=== PATIENT | male | born 1970 | race African-American/Black ===

== ENCOUNTER 2019-07-31 10:23 | Inpatient (IN) ==
[2019-07-31] MEDS ORDERED: SODIUM CHLORIDE 0.9% 1,000 ML IV STA (10:54)
[2019-07-31 11:07] LABS: Basophils # 0.1 10*3/uL (0.0-0.2); Basophils % 0.5 % (0.0-0.8); Hematocrit 41.6 VOL% (42.0-52.0); Hemoglobin 13.9 GM/DL (14.0-18.0); Immature Granulocytes % 4.6 %; Immature Granulocytes Absolute 1.15 #; Lymphocytes # 0.4 10*3/uL (1.4-4.0); Lymphocytes % 1.6 % (21.2-54.2); Mean Corpuscular HGB Conc 33.4 GM/DL (32-36); Mean Corpuscular Volume 98.8 FL (87-102); Mean Platelet Volume 11.3 FL (9.6-12.0); Monocytes % 9.1 % (1.7-12.7); NRBC # 0.02 10*3/uL; Neutrophils % 84.2 % (38.7-73.9); Platelet Count 122 T/CUMM (130-400); Red Blood Count 4.21 MC/CUMM (3.8-5.5); Red Cell Distribution Width 12.9 % (9.3-17.3); White Blood Count 24.9 T/CUMM (4-12)
[2019-07-31 11:24] LABS: Alanine Aminotransferase 98 U/L (16-61); Albumin 2.9 G/DL (3.4-5.0); Alkaline Phosphatase 91 U/L (45-117); Aspartate Amino Transferase 617 U/L (0-37); Blood Urea Nitrogen 10 MG/DL (7-18); Calcium 8.8 MG/DL (8.5-10.1); Estimated Glom Filtration Rate 39 ML/MIN; Osmolality,Calculated 259.5 MOS/KG (273-304); Total Protein 7.9 G/DL (6.4-8.3)
[2019-07-31 11:25] LABS: Glucose 48 MG/DL (74-106)
[2019-07-31] MEDS ORDERED: DEXTROSE 50% 25 GM/50 ML SYRINGE IV ONE (11:26)
[2019-07-31 11:29] LABS: Band Neutrophils 18 % (0-10); Eosinophils 1 % (0-10); Lymphocytes 2 % (20-55); Segmented Neutrophils 71 % (50-85); Total Cells Counted 100
[2019-07-31 11:30] LABS: Hypochromasia 1+; Platelet Estimate Adequate
[2019-07-31] MEDS ORDERED: DEXTROSE 50% 25 GM/50 ML VIAL IV STA (11:32)
[2019-07-31] MEDS ORDERED: SODIUM CHLORIDE 0.9% 2,700 ML IV ONE (11:34)
[2019-07-31] MEDS ORDERED: VANCOMYCIN INJ 1,250 MG in SODIUM CHLORIDE 0.9% 250 ML IV ONE (12:00)
[2019-07-31] MEDS ORDERED: PIPERACILLIN/TAZOBACTAM 3,375 MG in SODIUM CHLORIDE 0.9% 100 ML IV ONE (12:00)
[2019-07-31 12:43] LABS: Amorphous Crystals,Urine Few /HPF (Few); Apearance,Urine CLOUDY (Clear); Bacteria,Urine Occasional /HPF (Few); Bilirubin,Urine Negative (Negative); Blood, Urine Large mg/dL (Negative); Glucose,Urine (UA) 50 mg/dL (Negative); Hyaline Casts,Urine 9 /LPF (0-3); Ketones,Urine Negative (Negative); Mucus,Urine Occasional /LPF (Occasional); Nitrite,Urine Negative (Negative); Protein,Urine 100 MG/DL; Squamous Epithelial Cell,Urine Occasional /HPF (0-10); Urine Color Amber (Yellow); Urine Specific Gravity 1.015 (1.001-1.035); Urine Urobilinogen < 2.0 EU/DL (0.2-1.0)
[2019-07-31 12:46] LABS: Barbiturates Screen,Urine Negative (Negative); Benzodiazepines Screen,Urine Negative (Negative); Cannabinoid Screen,Urine Negative (Negative); Opiate Screen,Urine Negative (Negative); Phencyclidine Screen,Urine Negative (Negative)
[2019-07-31] MEDS ORDERED: ONDANSETRON 4 MG/2 ML VIAL IV PRN (13:04)
[2019-07-31] MEDS ORDERED: SODIUM CHLORIDE 0.9% 1,000 ML IV SCH (13:04)
[2019-07-31] MEDS ORDERED: NIFEdipine 10 MG CAPSULE PO PRN (13:07)
[2019-07-31] MEDS ORDERED: DEXTROSE 50% 25 GM/50 ML VIAL IV PRN (13:07)
[2019-07-31] MEDS ORDERED: GLUCAGON 1 MG VIAL IM PRN (13:07)
[2019-07-31] MEDS: PANTOPRAZOLE 40 MG TABLET PO SCH (13:34)
[2019-07-31] MEDS: carvediloL 12.5 MG TABLET PO SCH ×2 (13:34→20:30)
[2019-07-31] MEDS: DEXTROSE 5% LACTATED RINGERS 1,000 ML IV SCH ×2 (14:30→21:17)
[2019-07-31] MEDS: INSULIN LISPRO 100 UNIT/ML SUBCUT SCH ×2 (15:07→20:58)
[2019-07-31] MEDS: LEVOFLOXACIN INJ 750 MG in PREMIX 1 EACH IV SCH (15:15)
[2019-07-31] MEDS: POTASSIUM CHLORIDE 20 MEQ TABLET PO SCH ×2 (16:18→20:30)
[2019-07-31 18:37] LABS: Urine Color Amber (Yellow)
[2019-07-31 18:38] LABS: Apearance,Urine Cloudy (Clear); Glucose,Urine (UA) 150 mg/dL (Negative); Ketones,Urine Negative (Negative); Protein,Urine >=500 MG/DL
[2019-07-31 18:39] LABS: Bilirubin,Urine Negative (Negative); Nitrite,Urine Negative (Negative)
[2019-07-31 18:40] LABS: Blood, Urine 1+ mg/dL (Negative)
[2019-07-31 18:41] LABS: Urine Urobilinogen 0.2 EU/DL (0.2-1.0)
[2019-07-31 18:42] LABS: RBC,Urine TNTC /HPF (0-4); Squamous Epithelial Cell,Urine 1+ /HPF (0-10); WBC,Urine Occasional /HPF (0-6)
[2019-07-31 18:43] LABS: Transitional Epi Cells,Urine None Seen /HPF (<1)
[2019-07-31] MEDS: ENOXAPARIN 40 MG/0.4 ML SYRINGE SUBCUT SCH (20:30)
[2019-08-01] MEDS: POTASSIUM CHLORIDE 20 MEQ TABLET PO SCH (00:09)
[2019-08-01] MEDS: INSULIN LISPRO 100 UNIT/ML SUBCUT SCH ×6 (00:09→20:13)
[2019-08-01] MEDS ORDERED: LACTATED RINGERS 1,000 ML IV ONE (00:53)
[2019-08-01 02:10] LABS: Albumin 1.8 G/DL (3.4-5.0); Bilirubin,Total 0.5 MG/DL (0.2-1.0); Calcium 7.3 MG/DL (8.5-10.1); Osmolality,Calculated 271.4 MOS/KG (273-304); Total Protein 5.9 G/DL (6.4-8.3)
[2019-08-01 04:17] LABS: Basophils % 0.2 % (0.0-0.8); Hematocrit 32.6 VOL% (42.0-52.0); Immature Granulocytes % 0.8 %; Immature Granulocytes Absolute 0.17 #; Lymphocytes # 0.8 10*3/uL (1.4-4.0); Lymphocytes % 3.7 % (21.2-54.2); Mean Corpuscular HGB Conc 33.7 GM/DL (32-36); Mean Corpuscular Volume 97.9 FL (87-102); Mean Platelet Volume 11.9 FL (9.6-12.0); Monocytes % 8.4 % (1.7-12.7); Neutrophils % 86.9 % (38.7-73.9); Platelet Count 86 T/CUMM (130-400); Red Blood Count 3.33 MC/CUMM (3.8-5.5); White Blood Count 20.8 T/CUMM (4-12)
[2019-08-01 04:41] LABS: Band Neutrophils 7 % (0-10); Hypochromasia 1+; Lymphocytes 4 % (20-55); Platelet Estimate Decreased; Segmented Neutrophils 85 % (50-85); Total Cells Counted 100
[2019-08-01] MEDS: DEXTROSE 5% LACTATED RINGERS 1,000 ML IV SCH ×3 (05:32→19:30)
[2019-08-01 06:42] LABS: Risk Ratio 3.29; Thyroid Stimulating Hormone 0.883 uIU/ml (0.358-3.74); VLDL CHOLESTEROL 18.8 MG/DL
[2019-08-01 07:06] LABS: Albumin 1.8 G/DL (3.4-5.0); Bilirubin,Total 0.6 MG/DL (0.2-1.0); Calcium 7.4 MG/DL (8.5-10.1); Osmolality,Calculated 269.5 MOS/KG (273-304); Total Protein 5.8 G/DL (6.4-8.3)
[2019-08-01 07:07] LABS: Troponin I 0.793 NG/ML (0.00-0.045)
[2019-08-01] MEDS: carvediloL 12.5 MG TABLET PO SCH ×2 (08:17→20:19)
[2019-08-01] MEDS: PANTOPRAZOLE 40 MG TABLET PO SCH (08:18)
[2019-08-01] MEDS: ENOXAPARIN 40 MG/0.4 ML SYRINGE SUBCUT SCH (20:19)
[2019-08-02] MEDS: INSULIN LISPRO 100 UNIT/ML SUBCUT SCH ×6 (01:00→20:18)
[2019-08-02] MEDS: DEXTROSE 5% LACTATED RINGERS 1,000 ML IV SCH ×3 (01:31→19:38)
[2019-08-02 04:12] LABS: Basophils % 0.2 % (0.0-0.8); Eosinophils % 0.1 % (0.00-10.9); Hemoglobin 10.9 GM/DL (14.0-18.0); Immature Granulocytes % 1.1 %; Immature Granulocytes Absolute 0.22 #; Lymphocytes # 0.9 10*3/uL (1.4-4.0); Lymphocytes % 4.4 % (21.2-54.2); Mean Corpuscular Volume 98.8 FL (87-102); Mean Platelet Volume 12.1 FL (9.6-12.0); NRBC # 0.02 10*3/uL; Neutrophils % 84.2 % (38.7-73.9); Platelet Count 98 T/CUMM (130-400); Red Blood Count 3.34 MC/CUMM (3.8-5.5); Red Cell Distribution Width 13.3 % (9.3-17.3); White Blood Count 19.4 T/CUMM (4-12)
[2019-08-02 04:35] LABS: Calcium 8.1 MG/DL (8.5-10.1); Osmolality,Calculated 271.8 MOS/KG (273-304)
[2019-08-02 04:53] LABS: Band Neutrophils 3 % (0-10); Hypochromasia 1+; Lymphocytes 5 % (20-55); Platelet Estimate Decreased; Segmented Neutrophils 82 % (50-85); Total Cells Counted 100
[2019-08-02] MEDS: PANTOPRAZOLE 40 MG TABLET PO SCH (09:24)
[2019-08-02] MEDS: carvediloL 12.5 MG TABLET PO SCH (09:24)
[2019-08-02] MEDS: LEVOFLOXACIN INJ 750 MG in PREMIX 1 EACH IV SCH (16:54)
[2019-08-02] MEDS: ENOXAPARIN 30 MG/0.3 ML SYRINGE SUBCUT SCH (20:20)
[2019-08-03] MEDS: INSULIN LISPRO 100 UNIT/ML SUBCUT SCH ×6 (00:18→21:48)
[2019-08-03 04:54] LABS: Basophils % 0.2 % (0.0-0.8); Eosinophils % 0.1 % (0.00-10.9); Hemoglobin 11.4 GM/DL (14.0-18.0); Immature Granulocytes % 4.3 %; Immature Granulocytes Absolute 0.84 #; Lymphocytes # 1.4 10*3/uL (1.4-4.0); Mean Corpuscular HGB Conc 34.5 GM/DL (32-36); Mean Corpuscular Volume 95.7 FL (87-102); Mean Platelet Volume 12.4 FL (9.6-12.0); Monocytes % 11.5 % (1.7-12.7); NRBC # 0.02 10*3/uL; Neutrophils % 76.9 % (38.7-73.9); Platelet Count 122 T/CUMM (130-400); Red Blood Count 3.45 MC/CUMM (3.8-5.5); Red Cell Distribution Width 13.2 % (9.3-17.3); White Blood Count 19.4 T/CUMM (4-12)
[2019-08-03 05:16] LABS: Calcium 8.4 MG/DL (8.5-10.1); Osmolality,Calculated 268.2 MOS/KG (273-304)
[2019-08-03 05:17] LABS: Band Neutrophils 2 % (0-10); Eosinophils 1 % (0-10); Hypochromasia 1+; Lymphocytes 5 % (20-55); Nucleated Red Blood Cells 1 (0-5); Segmented Neutrophils 84 % (50-85); Total Cells Counted 100
[2019-08-03] MEDS: DEXTROSE 5% LACTATED RINGERS 1,000 ML IV SCH ×2 (07:58→11:03)
[2019-08-03] MEDS: PANTOPRAZOLE 40 MG TABLET PO SCH (09:12)
[2019-08-03] MEDS ORDERED: ceFAZolin 1,000 MG in SYRINGE 1 EACH IV ONE (10:56)
[2019-08-03] MEDS ORDERED: ceFAZolin 1,000 MG in SYRINGE 1 EACH IV SCH (11:00)
[2019-08-03] MEDS: hydrALAZINE 20 MG/1 ML VIAL IV PRN (12:05)
[2019-08-03] MEDS ORDERED: cefTRIAXone 2,000 MG in SYRINGE 1 EACH IV SCH (21:00)
[2019-08-03] MEDS: ENOXAPARIN 30 MG/0.3 ML SYRINGE SUBCUT SCH (22:00)
[2019-08-04] MEDS: INSULIN LISPRO 100 UNIT/ML SUBCUT SCH ×6 (02:13→23:32)
[2019-08-04] MEDS ORDERED: LORazepam 2 MG/1 ML VIAL IV ONE (03:43)
[2019-08-04 05:55] LABS: Hematocrit 36.5 VOL% (42.0-52.0); Hemoglobin 12.7 GM/DL (14.0-18.0); Mean Corpuscular HGB Conc 34.8 GM/DL (32-36); Mean Corpuscular Volume 95.3 FL (87-102); Platelet Count 195 T/CUMM (130-400); Red Blood Count 3.83 MC/CUMM (3.8-5.5); Red Cell Distribution Width 13.2 % (9.3-17.3); White Blood Count 18.1 T/CUMM (4-12)
[2019-08-04 05:56] LABS: Basophils # 0.1 10*3/uL (0.0-0.2); Basophils % 0.4 % (0.0-0.8); Eosinophils % 0.2 % (0.00-10.9); Immature Granulocytes Absolute 0.73 #; Lymphocytes # 1.5 10*3/uL (1.4-4.0); Lymphocytes % 8.5 % (21.2-54.2); Monocytes % 13.5 % (1.7-12.7); Neutrophils % 73.4 % (38.7-73.9)
[2019-08-04] MEDS ORDERED: ceFAZolin 1,000 MG in SYRINGE 1 EACH IV ONE (06:00)
[2019-08-04 06:16] LABS: Hypochromasia Slight; Lymphocytes 7 % (20-55); Platelet Estimate Adequate; Segmented Neutrophils 80 % (50-85); Total Cells Counted 100
[2019-08-04 06:24] LABS: Calcium 8.3 MG/DL (8.5-10.1); Osmolality,Calculated 272.2 MOS/KG (273-304)
[2019-08-04 06:29] LABS: Albumin 1.7 G/DL (3.4-5.0); Bilirubin,Direct 0.14 MG/DL (0.0-0.20); Bilirubin,Indirect 0.5 MG/DL (0.0-1.0); Bilirubin,Total 0.6 MG/DL (0.2-1.0); Osmolality,Calculated 273.2 MOS/KG (273-304); Total Protein 6.5 G/DL (6.4-8.3)
[2019-08-04] MEDS ORDERED: LORazepam 2 MG/1 ML VIAL IV PRN (09:24)
[2019-08-04] MEDS ORDERED: LIDOCAINE 1% 20 ML VIAL ONE (10:03)
[2019-08-04] MEDS ORDERED: HEPARIN 5,000 UNIT/1 ML VIAL ONE (10:03)
[2019-08-04] MEDS ORDERED: BUPIVACAINE 0.25% /EPI 10 ML VIAL ONE (10:03)
[2019-08-04] MEDS ORDERED: SODIUM CHLORIDE 0.9% 250 ML IV SCH (10:30)
[2019-08-04] MEDS ORDERED: ALBUTEROL/IPRATROPIUM 3 ML NEB RESP TX ONE (10:39)
[2019-08-04] MEDS ORDERED: TISSUE ADHESIVE 1 EACH APPLICATOR TOP ONE (11:13)
[2019-08-04] MEDS ORDERED: LIDOCAINE 100 MG/5 ML SYRINGE ONE (11:34)
[2019-08-04] MEDS ORDERED: MIDAZOLAM 2 MG/2 ML VIAL ONE (11:34)
[2019-08-04] MEDS ORDERED: PROPOFOL 200 MG/20 ML VIAL IV ONE (11:34)
[2019-08-04] MEDS ORDERED: SODIUM CHLORIDE 0.9% 250 ML IV ONE (11:35)
[2019-08-04] MEDS ORDERED: KETAMINE 500 MG/10 ML VIAL ONE (11:35)
[2019-08-04] MEDS ORDERED: ceFAZolin 2,000 MG in PREMIX 1 EACH IV PRN (12:00)
[2019-08-04 12:21] LABS: Hepatitis B Surface Ag Quant 0.35 Index; Hepatitis B Surface Ag Result Negative (Negative); Hepatitis C Virus Ab Quant 0.05 Index; Hepatitis C Virus Ab Result Negative (Negative)
[2019-08-04] MEDS ORDERED: HEPARIN 10,000 UNIT/10 ML VIAL IV PRN (12:34)
[2019-08-04] MEDS ORDERED: ceFAZolin 2,000 MG in PREMIX 1 EACH IV ONE (17:00)
[2019-08-04] MEDS: PANTOPRAZOLE 40 MG TABLET PO SCH (17:16)
[2019-08-04] MEDS: ENOXAPARIN 30 MG/0.3 ML SYRINGE SUBCUT SCH (20:30)
[2019-08-05] MEDS: hydrALAZINE 20 MG/1 ML VIAL IV PRN ×3 (00:18→18:00)
[2019-08-05] MEDS: INSULIN LISPRO 100 UNIT/ML SUBCUT SCH (01:36)
[2019-08-05 05:45] LABS: Calcium 7.9 MG/DL (8.5-10.1); Osmolality,Calculated 274.8 MOS/KG (273-304)
[2019-08-05] MEDS ORDERED: INSULIN LISPRO 100 UNIT/ML SUBCUT SCH (07:30)
[2019-08-05] MEDS: PANTOPRAZOLE 40 MG TABLET PO SCH (10:43)
[2019-08-05] MEDS ORDERED: ceFAZolin 2,000 MG in PREMIX 1 EACH IV ONE (17:00)
[2019-08-05] MEDS: ENOXAPARIN 30 MG/0.3 ML SYRINGE SUBCUT SCH (20:36)
[2019-08-06 07:24] LABS: Basophils # 0.1 10*3/uL (0.0-0.2); Basophils % 0.7 % (0.0-0.8); Eosinophils # 0.1 10*3/uL (0.0-0.87); Hematocrit 32.1 VOL% (42.0-52.0); Hemoglobin 10.9 GM/DL (14.0-18.0); Immature Granulocytes % 8.7 %; Immature Granulocytes Absolute 1.04 #; Lymphocytes # 1.6 10*3/uL (1.4-4.0); Lymphocytes % 13.4 % (21.2-54.2); Mean Corpuscular Volume 96.1 FL (87-102); Mean Platelet Volume 10.4 FL (9.6-12.0); Monocytes % 23.2 % (1.7-12.7); Platelet Count 228 T/CUMM (130-400); Red Blood Count 3.34 MC/CUMM (3.8-5.5); Red Cell Distribution Width 14.1 % (9.3-17.3); White Blood Count 11.9 T/CUMM (4-12)
[2019-08-06 07:41] LABS: Calcium 7.9 MG/DL (8.5-10.1); Osmolality,Calculated 277.4 MOS/KG (273-304)
[2019-08-06 07:57] LABS: Anisocytosis 1+; Band Neutrophils 10 % (0-10); Eosinophils 1 % (0-10); Lymphocytes 19 % (20-55); Macrocytosis 2+; Platelet Estimate Normal; Segmented Neutrophils 50 % (50-85); Total Cells Counted 100
[2019-08-06] MEDS: PANTOPRAZOLE 40 MG TABLET PO SCH (13:37)
[2019-08-06] MEDS: amLODIPine 5 MG TABLET PO SCH (13:37)
[2019-08-06] MEDS: hydrALAZINE 20 MG/1 ML VIAL IV PRN (13:37)
[2019-08-06] MEDS: ceFAZolin 2,000 MG in PREMIX 1 EACH IV SCH (16:56)
[2019-08-07 04:50] LABS: Basophils # 0.1 10*3/uL (0.0-0.2); Basophils % 0.4 % (0.0-0.8); Eosinophils # 0.2 10*3/uL (0.0-0.87); Eosinophils % 1.3 % (0.00-10.9); Hematocrit 30.3 VOL% (42.0-52.0); Hemoglobin 10.5 GM/DL (14.0-18.0); Immature Granulocytes % 8.4 %; Immature Granulocytes Absolute 0.95 #; Lymphocytes # 1.4 10*3/uL (1.4-4.0); Lymphocytes % 12.1 % (21.2-54.2); Mean Corpuscular HGB Conc 34.7 GM/DL (32-36); Mean Corpuscular Volume 96.2 FL (87-102); Mean Platelet Volume 10.7 FL (9.6-12.0); Neutrophils % 53.8 % (38.7-73.9); Platelet Count 230 T/CUMM (130-400); Red Blood Count 3.15 MC/CUMM (3.8-5.5); White Blood Count 11.4 T/CUMM (4-12)
[2019-08-07 05:00] LABS: Osmolality,Calculated 274.1 MOS/KG (273-304)
[2019-08-07 05:36] LABS: Band Neutrophils 1 % (0-10); Eosinophils 3 % (0-10); Lymphocytes 11 % (20-55); Metamyelocytes 1 %; Myelocytes 1 %; Segmented Neutrophils 65 % (50-85); Total Cells Counted 100
[2019-08-07 05:37] LABS: Hypochromasia 1+; Platelet Estimate Normal
[2019-08-07] MEDS: PANTOPRAZOLE 40 MG TABLET PO SCH (09:26)
[2019-08-07] MEDS: amLODIPine 5 MG TABLET PO SCH (09:26)
[2019-08-08 04:53] LABS: Basophils # 0.1 10*3/uL (0.0-0.2); Basophils % 0.7 % (0.0-0.8); Eosinophils # 0.2 10*3/uL (0.0-0.87); Eosinophils % 1.9 % (0.00-10.9); Hematocrit 30.2 VOL% (42.0-52.0); Hemoglobin 10.4 GM/DL (14.0-18.0); Immature Granulocytes % 8.1 %; Immature Granulocytes Absolute 0.83 #; Lymphocytes # 1.4 10*3/uL (1.4-4.0); Lymphocytes % 13.9 % (21.2-54.2); Mean Corpuscular HGB Conc 34.4 GM/DL (32-36); Mean Corpuscular Volume 95.6 FL (87-102); Mean Platelet Volume 10.3 FL (9.6-12.0); Monocytes % 20.8 % (1.7-12.7); Neutrophils % 54.6 % (38.7-73.9); Platelet Count 244 T/CUMM (130-400); Red Blood Count 3.16 MC/CUMM (3.8-5.5); Red Cell Distribution Width 13.4 % (9.3-17.3); White Blood Count 10.3 T/CUMM (4-12)
[2019-08-08 05:18] LABS: Calcium 7.8 MG/DL (8.5-10.1); Osmolality,Calculated 268.8 MOS/KG (273-304)
[2019-08-08 05:45] LABS: Band Neutrophils 6 % (0-10); Eosinophils 2 % (0-10); Lymphocytes 12 % (20-55); Segmented Neutrophils 68 % (50-85); Total Cells Counted 100
[2019-08-08 05:46] LABS: Anisocytosis 1+; Platelet Estimate Normal; Target Cells Few
[2019-08-08] MEDS: PANTOPRAZOLE 40 MG TABLET PO SCH (09:32)
[2019-08-08] MEDS: amLODIPine 5 MG TABLET PO SCH (09:32)
[2019-08-09] MEDS: hydrALAZINE 20 MG/1 ML VIAL IV PRN ×2 (01:53→22:11)
[2019-08-09 05:43] LABS: Basophils # 0.1 10*3/uL (0.0-0.2); Basophils % 0.5 % (0.0-0.8); Eosinophils # 0.2 10*3/uL (0.0-0.87); Eosinophils % 1.6 % (0.00-10.9); Hematocrit 30.8 VOL% (42.0-52.0); Hemoglobin 10.6 GM/DL (14.0-18.0); Immature Granulocytes % 5.3 %; Immature Granulocytes Absolute 0.55 #; Lymphocytes # 1.5 10*3/uL (1.4-4.0); Lymphocytes % 14.3 % (21.2-54.2); Mean Corpuscular HGB Conc 34.4 GM/DL (32-36); Mean Platelet Volume 10.5 FL (9.6-12.0); Monocytes % 18.6 % (1.7-12.7); Neutrophils % 59.7 % (38.7-73.9); Platelet Count 181 T/CUMM (130-400); Red Blood Count 3.21 MC/CUMM (3.8-5.5); Red Cell Distribution Width 13.4 % (9.3-17.3); White Blood Count 10.4 T/CUMM (4-12)
[2019-08-09 06:09] LABS: Calcium 8.1 MG/DL (8.5-10.1); Osmolality,Calculated 271.5 MOS/KG (273-304)
[2019-08-09 06:13] LABS: Band Neutrophils 6 % (0-10); Eosinophils 2 % (0-10); Lymphocytes 8 % (20-55); Myelocytes 1 %; Segmented Neutrophils 65 % (50-85)
[2019-08-09 06:14] LABS: Platelet Estimate Normal; Total Cells Counted 100
[2019-08-09] MEDS: PANTOPRAZOLE 40 MG TABLET PO SCH (10:01)
[2019-08-09] MEDS: amLODIPine 5 MG TABLET PO SCH (10:01)
[2019-08-10] MEDS: ACETAMINOPHEN 325 MG TABLET PO PRN (01:22)
[2019-08-10] MEDS: hydrALAZINE 20 MG/1 ML VIAL IV PRN ×2 (06:02→12:45)
[2019-08-10] MEDS: PANTOPRAZOLE 40 MG TABLET PO SCH (10:28)
[2019-08-10] MEDS: amLODIPine 5 MG TABLET PO SCH (10:28)
[2019-08-10 11:01] LABS: Alanine Aminotransferase < 6 U/L (16-61); Albumin 1.7 G/DL (3.4-5.0); Alkaline Phosphatase 62 U/L (45-117); Aspartate Amino Transferase 54 U/L (0-37); Bilirubin,Total < 0.39 MG/DL (0.2-1.0); Blood Urea Nitrogen 48 MG/DL (7-18); Calcium 8.1 MG/DL (8.5-10.1); Estimated Glom Filtration Rate 7 ML/MIN; Glucose 61 MG/DL (74-106); Osmolality,Calculated 270.8 MOS/KG (273-304); Total Protein 6.8 G/DL (6.4-8.3)
[2019-08-10] MEDS ORDERED: amLODIPine 5 MG TABLET PO ONE (21:00)
[2019-08-11] MEDS: ACETAMINOPHEN 325 MG TABLET PO PRN (00:04)
[2019-08-11] MEDS: hydrALAZINE 20 MG/1 ML VIAL IV PRN (04:19)
[2019-08-11 05:02] LABS: Basophils # 0.1 10*3/uL (0.0-0.2); Basophils % 0.8 % (0.0-0.8); Eosinophils # 0.2 10*3/uL (0.0-0.87); Eosinophils % 1.6 % (0.00-10.9); Hematocrit 29.8 VOL% (42.0-52.0); Hemoglobin 10.2 GM/DL (14.0-18.0); Immature Granulocytes % 3.3 %; Immature Granulocytes Absolute 0.37 #; Lymphocytes # 1.8 10*3/uL (1.4-4.0); Lymphocytes % 15.8 % (21.2-54.2); Mean Corpuscular HGB Conc 34.2 GM/DL (32-36); Mean Corpuscular Volume 97.4 FL (87-102); Mean Platelet Volume 10.7 FL (9.6-12.0); Monocytes % 14.8 % (1.7-12.7); Neutrophils % 63.7 % (38.7-73.9); Platelet Count 192 T/CUMM (130-400); Red Blood Count 3.06 MC/CUMM (3.8-5.5); Red Cell Distribution Width 13.2 % (9.3-17.3); White Blood Count 11.1 T/CUMM (4-12)
[2019-08-11 05:37] LABS: Alanine Aminotransferase < 6 U/L (16-61); Albumin 1.6 G/DL (3.4-5.0); Alkaline Phosphatase 59 U/L (45-117); Aspartate Amino Transferase 44 U/L (0-37); Blood Urea Nitrogen 56 MG/DL (7-18); Calcium 8.3 MG/DL (8.5-10.1); Estimated Glom Filtration Rate 6 ML/MIN; Glucose 66 MG/DL (74-106); Osmolality,Calculated 271.9 MOS/KG (273-304); Total Protein 6.5 G/DL (6.4-8.3)
[2019-08-11] MEDS: PANTOPRAZOLE 40 MG TABLET PO SCH (08:37)
[2019-08-11] MEDS: amLODIPine 10 MG TABLET PO SCH (08:37)
[2019-08-11] MEDS: ceFAZolin 2,000 MG in PREMIX 1 EACH IV SCH (16:42)
[2019-08-11 18:42] LABS: Creatinine,Urine Random 112 MG/DL; Total Protein,Urine Random 425 MG/DL
[2019-08-12 05:16] LABS: Basophils # 0.1 10*3/uL (0.0-0.2); Basophils % 0.7 % (0.0-0.8); Eosinophils # 0.2 10*3/uL (0.0-0.87); Eosinophils % 1.7 % (0.00-10.9); Hematocrit 28.6 VOL% (42.0-52.0); Hemoglobin 9.7 GM/DL (14.0-18.0); Immature Granulocytes % 1.7 %; Immature Granulocytes Absolute 0.16 #; Lymphocytes # 1.2 10*3/uL (1.4-4.0); Lymphocytes % 12.6 % (21.2-54.2); Mean Corpuscular HGB Conc 33.9 GM/DL (32-36); Mean Corpuscular Volume 97.3 FL (87-102); Mean Platelet Volume 10.6 FL (9.6-12.0); Monocytes % 18.1 % (1.7-12.7); Neutrophils % 65.2 % (38.7-73.9); Platelet Count 181 T/CUMM (130-400); Red Blood Count 2.94 MC/CUMM (3.8-5.5); Red Cell Distribution Width 13.3 % (9.3-17.3); White Blood Count 9.7 T/CUMM (4-12)
[2019-08-12 05:36] LABS: Alanine Aminotransferase < 6 U/L (16-61); Albumin 1.6 G/DL (3.4-5.0); Alkaline Phosphatase 63 U/L (45-117); Aspartate Amino Transferase 40 U/L (0-37); Blood Urea Nitrogen 27 MG/DL (7-18); Estimated Glom Filtration Rate 11 ML/MIN; Glucose 88 MG/DL (74-106); Osmolality,Calculated 269.4 MOS/KG (273-304); Total Protein 6.7 G/DL (6.4-8.3)
[2019-08-12 05:37] LABS: Calcium 7.9 MG/DL (8.5-10.1); Osmolality,Calculated 269.4 MOS/KG (273-304)
[2019-08-12 05:42] LABS: Eosinophils 2 % (0-10); Hypochromasia 1+; Lymphocytes 11 % (20-55); Segmented Neutrophils 74 % (50-85); Total Cells Counted 100
[2019-08-12 05:43] LABS: Macrocytosis Slight; Target Cells Few
[2019-08-12 05:44] LABS: Platelet Estimate Adequate
[2019-08-12] MEDS: amLODIPine 10 MG TABLET PO SCH (08:56)
[2019-08-12] MEDS: PANTOPRAZOLE 40 MG TABLET PO SCH (08:56)
[2019-08-13 05:24] LABS: Basophils # 0.1 10*3/uL (0.0-0.2); Basophils % 0.9 % (0.0-0.8); Eosinophils # 0.2 10*3/uL (0.0-0.87); Hemoglobin 9.5 GM/DL (14.0-18.0); Immature Granulocytes % 1.3 %; Immature Granulocytes Absolute 0.12 #; Lymphocytes # 1.6 10*3/uL (1.4-4.0); Lymphocytes % 18.1 % (21.2-54.2); Mean Corpuscular HGB Conc 33.9 GM/DL (32-36); Mean Corpuscular Volume 97.6 FL (87-102); Mean Platelet Volume 10.7 FL (9.6-12.0); Monocytes % 17.8 % (1.7-12.7); Neutrophils % 59.9 % (38.7-73.9); Platelet Count 186 T/CUMM (130-400); Red Blood Count 2.87 MC/CUMM (3.8-5.5); Red Cell Distribution Width 13.1 % (9.3-17.3)
[2019-08-13 05:49] LABS: Band Neutrophils 1 % (0-10); Eosinophils 3 % (0-10); Lymphocytes 12 % (20-55); Platelet Estimate Adequate; Segmented Neutrophils 70 % (50-85); Total Cells Counted 100
[2019-08-13 05:50] LABS: Hypochromasia 1+; Macrocytosis Slight
[2019-08-13 05:56] LABS: Alanine Aminotransferase < 6 U/L (16-61); Albumin 1.6 G/DL (3.4-5.0); Alkaline Phosphatase 64 U/L (45-117); Aspartate Amino Transferase 35 U/L (0-37); Bilirubin,Total < 0.39 MG/DL (0.2-1.0); Blood Urea Nitrogen 34 MG/DL (7-18); Calcium 8.1 MG/DL (8.5-10.1); Estimated Glom Filtration Rate 8 ML/MIN; Glucose 86 MG/DL (74-106); Osmolality,Calculated 270.5 MOS/KG (273-304); Total Protein 6.8 G/DL (6.4-8.3)
[2019-08-13 06:16] LABS: Total Protein 6.8 G/DL (6.4-8.3)
[2019-08-13 06:21] LABS: Immunoglobulin A (Chem) 429 MG/DL (70-400); Immunoglobulin G (Chem) 1900 MG/DL (700-1600); Immunoglobulin M (Chem) 65 MG/DL (40-230); Total Protein (Chem) 6.8 G/DL (6.4-8.3)
[2019-08-13] MEDS: amLODIPine 10 MG TABLET PO SCH (08:26)
[2019-08-13] MEDS: PANTOPRAZOLE 40 MG TABLET PO SCH (08:26)
[2019-08-13] MEDS ORDERED: ALBUMIN 25% 12.5 GM in PREMIX 1 EACH IV ONE (09:00)
[2019-08-13 09:14] LABS: Albumin (SPE) 2.4 G/DL (3.2-5.3); Albumin (SPE) Rel % 35.4 %; Alpha 1 (SPE) 0.4 G/DL (0.1-0.4); Alpha 2 (SPE) Rel % 14.4 %; Beta (SPE) 0.8 G/DL (0.5-1.1); Beta (SPE) Rel % 11.5 %; Gamma (SPE) 2.2 G/DL (0.7-1.7); Gamma (SPE) Rel % 32.7 %
[2019-08-13 12:47] LABS: Random Urine Protein (Bench) 327 MG/DL (<11.9)
[2019-08-13] MEDS: ceFAZolin 2,000 MG in PREMIX 1 EACH IV SCH (17:07)
[2019-08-14 05:49] LABS: Calcium 8.7 MG/DL (8.5-10.1)
[2019-08-14 08:58] LABS: Albumin (UPER) 114.1 MG/DL; Albumin (UPER) Rel% 34.9 %; Alpha 1 (UPER) 43.8 MG/DL; Alpha 1 (UPER) Rel% 13.4 %; Alpha 2 (UPER) 36.3 MG/DL; Alpha 2 (UPER) Rel % 11.1 %; Beta (UPER) 50.4 MG/DL; Beta (UPER) Rel % 15.4 %; Gamma (UPER) 82.4 MG/DL; Gamma (UPER) Rel % 25.2 %
[2019-08-14] MEDS: PANTOPRAZOLE 40 MG TABLET PO SCH (10:27)
[2019-08-14] MEDS: amLODIPine 10 MG TABLET PO SCH (10:27)
[2019-08-15 07:25] LABS: Calcium 8.2 MG/DL (8.5-10.1); Osmolality,Calculated 267.5 MOS/KG (273-304)
[2019-08-15] MEDS ORDERED: EPOETIN ALFA 10,000 UNIT/1 ML VIAL IV SCH (08:07)
[2019-08-15] MEDS: amLODIPine 10 MG TABLET PO SCH (08:51)
[2019-08-15] MEDS: PANTOPRAZOLE 40 MG TABLET PO SCH (08:51)
[2019-08-16] MEDS: ACETAMINOPHEN 325 MG TABLET PO PRN ×2 (09:08→16:38)
[2019-08-16] MEDS: PANTOPRAZOLE 40 MG TABLET PO SCH (09:09)
[2019-08-16] MEDS: amLODIPine 10 MG TABLET PO SCH (09:09)
[2019-08-17 04:50] LABS: Calcium 8.5 MG/DL (8.5-10.1); Osmolality,Calculated 272.2 MOS/KG (273-304)
[2019-08-17] MEDS: PANTOPRAZOLE 40 MG TABLET PO SCH (08:29)
[2019-08-17] MEDS: amLODIPine 10 MG TABLET PO SCH (08:29)
[2019-08-17] MEDS: ACETAMINOPHEN 325 MG TABLET PO PRN (08:29)
[2019-08-17] MEDS: HEPARIN DRIP 25,000 UNITS/500 ML PREMIX IV SCH (10:23)
[2019-08-17 13:07] LABS: PT Patient Result 11.3 SECS (9.6-12.2)
[2019-08-17 13:09] LABS: Partial Thromboplastin Time 45.1 SECS (20.8-36.0)
[2019-08-18] MEDS: HEPARIN DRIP 25,000 UNITS/500 ML PREMIX IV SCH ×2 (01:25→15:21)
[2019-08-18 05:27] LABS: Basophils # 0.1 10*3/uL (0.0-0.2); Basophils % 1.1 % (0.0-0.8); Eosinophils # 0.3 10*3/uL (0.0-0.87); Eosinophils % 3.7 % (0.00-10.9); Hemoglobin 8.3 GM/DL (14.0-18.0); Immature Granulocytes % 0.5 %; Immature Granulocytes Absolute 0.04 #; Lymphocytes % 27.7 % (21.2-54.2); Mean Corpuscular HGB Conc 33.2 GM/DL (32-36); Mean Corpuscular Volume 97.7 FL (87-102); Mean Platelet Volume 10.3 FL (9.6-12.0); Monocytes % 11.3 % (1.7-12.7); Neutrophils % 55.7 % (38.7-73.9); Platelet Count 255 T/CUMM (130-400); Red Blood Count 2.56 MC/CUMM (3.8-5.5); Red Cell Distribution Width 12.9 % (9.3-17.3); White Blood Count 7.4 T/CUMM (4-12)
[2019-08-18 06:04] LABS: Calcium 8.7 MG/DL (8.5-10.1); Osmolality,Calculated 278.8 MOS/KG (273-304)
[2019-08-18] MEDS: PANTOPRAZOLE 40 MG TABLET PO SCH (08:05)
[2019-08-18] MEDS: amLODIPine 10 MG TABLET PO SCH (08:05)
[2019-08-18] MEDS ORDERED: WARFARIN 5 MG TABLET PO SCH (18:00)
[2019-08-19 05:01] LABS: Basophils # 0.1 10*3/uL (0.0-0.2); Basophils % 1.7 % (0.0-0.8); Eosinophils # 0.3 10*3/uL (0.0-0.87); Eosinophils % 4.1 % (0.00-10.9); Hematocrit 26.3 VOL% (42.0-52.0); Hemoglobin 8.6 GM/DL (14.0-18.0); Immature Granulocytes % 0.3 %; Immature Granulocytes Absolute 0.02 #; Lymphocytes # 1.9 10*3/uL (1.4-4.0); Lymphocytes % 30.4 % (21.2-54.2); Mean Corpuscular HGB Conc 32.7 GM/DL (32-36); Mean Corpuscular Volume 97.8 FL (87-102); Mean Platelet Volume 10.2 FL (9.6-12.0); Monocytes % 12.7 % (1.7-12.7); Neutrophils % 50.8 % (38.7-73.9); Platelet Count 242 T/CUMM (130-400); Red Blood Count 2.69 MC/CUMM (3.8-5.5); Red Cell Distribution Width 12.9 % (9.3-17.3); White Blood Count 6.4 T/CUMM (4-12)
[2019-08-19 05:32] LABS: Calcium 8.5 MG/DL (8.5-10.1); Osmolality,Calculated 278.5 MOS/KG (273-304)
[2019-08-19] MEDS: amLODIPine 10 MG TABLET PO SCH (08:42)
[2019-08-19] MEDS: PANTOPRAZOLE 40 MG TABLET PO SCH (08:42)
[2019-08-19 09:29] LABS: INR 1.2; PT Patient Result 12.5 SECS (9.6-12.2)
[2019-08-20 04:37] LABS: Basophils # 0.1 10*3/uL (0.0-0.2); Basophils % 1.4 % (0.0-0.8); Eosinophils # 0.2 10*3/uL (0.0-0.87); Eosinophils % 4.2 % (0.00-10.9); Hematocrit 25.4 VOL% (42.0-52.0); Hemoglobin 8.3 GM/DL (14.0-18.0); Immature Granulocytes % 0.4 %; Immature Granulocytes Absolute 0.02 #; Lymphocytes # 1.6 10*3/uL (1.4-4.0); Lymphocytes % 28.9 % (21.2-54.2); Mean Corpuscular HGB Conc 32.7 GM/DL (32-36); Mean Corpuscular Volume 98.4 FL (87-102); Mean Platelet Volume 9.9 FL (9.6-12.0); Neutrophils % 52.1 % (38.7-73.9); Platelet Count 242 T/CUMM (130-400); Red Blood Count 2.58 MC/CUMM (3.8-5.5); Red Cell Distribution Width 12.9 % (9.3-17.3); White Blood Count 5.5 T/CUMM (4-12)
[2019-08-20 05:08] LABS: Calcium 8.2 MG/DL (8.5-10.1)
[2019-08-20] MEDS: ASPIRIN EC 325 MG TABLET PO SCH (10:38)
[2019-08-20] MEDS: amLODIPine 10 MG TABLET PO SCH (10:38)
[2019-08-20] MEDS: PANTOPRAZOLE 40 MG TABLET PO SCH (10:38)
[2019-08-21 05:35] LABS: Basophils # 0.1 10*3/uL (0.0-0.2); Basophils % 1.1 % (0.0-0.8); Eosinophils # 0.3 10*3/uL (0.0-0.87); Eosinophils % 5.8 % (0.00-10.9); Hematocrit 25.5 VOL% (42.0-52.0); Hemoglobin 8.2 GM/DL (14.0-18.0); Immature Granulocytes % 0.5 %; Immature Granulocytes Absolute 0.03 #; Lymphocytes # 1.7 10*3/uL (1.4-4.0); Mean Corpuscular HGB Conc 32.2 GM/DL (32-36); Mean Corpuscular Volume 99.2 FL (87-102); Neutrophils % 50.6 % (38.7-73.9); Platelet Count 245 T/CUMM (130-400); Red Blood Count 2.57 MC/CUMM (3.8-5.5); Red Cell Distribution Width 12.9 % (9.3-17.3); White Blood Count 5.7 T/CUMM (4-12)
[2019-08-21 05:56] LABS: Calcium 8.1 MG/DL (8.5-10.1)
[2019-08-21] MEDS: PANTOPRAZOLE 40 MG TABLET PO SCH (08:46)
[2019-08-21] MEDS: ASPIRIN EC 325 MG TABLET PO SCH (08:46)
[2019-08-21] MEDS: amLODIPine 10 MG TABLET PO SCH (08:46)
[2019-08-21 15:31] VITALS: BP 147/81
== END 2019-08-21 17:29 | disposition home or self-care (01) | DRG 682 ==
LOC: N.ED 10:23 → SUATTDRO 12:09 → N.EDINP 12:09 → N.CC 12:37 → N.2E 08-02 16:19
PROVIDERS: ADMIT Internal Medicine; ATTEND Internal Medicine